=== PATIENT | female | born 1970 | race Caucasian/White ===

== ENCOUNTER 2016-08-06 05:15 | Day surgery (SDC) | payer OTHER ==
[~2016-08-06] VITALS: Ht 165.1 cm; Wt 147.0 kg
--- NOTE | ~2016-08-06 | S ---
[facility] [place] [address] SURGICAL PATH RPT PROCEDURE Name: NITZA BURNS [place] #: [place] [facility] [place].#: [id number] Admission: 08/06/16 Date of : 66 Discharge: 08/07/16 Report #: [id number] Path Case #: [id number] PATHOLOGY REPORT COLLECTION DATE: 08/06/2016 RECEIVED DATE: 08/07/2016 SUBMITTING PHYS: Dr. Royce Lagunas OTHER PHYS: Dr. Eileen oJhnson SPECIMEN(S) RECEIVED: A.Gastric sleeve * * * * * * * * * * * * FINAL DIAGNOSIS: Gastric mucosa, gastric sleeve, partial sleeve gastrectomy: - Mild chronic inflammation along with reactive nonspecific changes, history of morbid obesity. - Negative for intestinal metaplasia, atrophy or dysplasia. (IUV:csd; d/t: 08/08/2016) PATHOLOGIST: Yuliet Meza M.D. REPORT ELECTRONICALLY SIGNED BY: Yuliet Meza M.D. DATE/TIME: 08/08/2016 15:14 * * * * * * * * * * * * GROSS PATHOLOGY: The specimen is received in formalin, labeled "Nitza Burns and gastric sleeve." Received is a 23.5 x 5.8 x 3.5 cm C-shaped and tubular portion of stomach with a stapled margin of resection and a scant amount of attached adipose tissue. The serosa is pink-de la vega, diffusely hemorrhagic, wrinkled, and displays adhesions. The brock are removed and the specimen is opened to reveal dark red to pink-de la vega mucosa with the usual rugal folds. No mucosal masses or lesions are grossly identified. Filler Wiper sections are submitted in cassette A1. (TTL; 08/07/2016) CLINICAL HISTORY: Morbid obesity INITIAL CPT CODE(S): A; 46599 Professional services performed by [facility] at [address] [address] SURGICAL PATH RPT PROCEDURE Name: NITZA BURNS Room #: [facility].#: [id number] Admission: 08/06/16 Date of : 66 Discharge: 08/07/16 Report #: [id number] Path Case #: [id number] [address] [facility] , [place] [address] Technical services performed by [facility] at [address] [place] [address], [facility] [address] [address]. [place] [address] PHONE: [phone] DIRECTOR: Carroll Poe M.D. * * * END OF REPORT * * *
--- NOTE | ~2016-08-06 | O ---
[facility] [place] [address] OPERATIVE REPORT Name: NITZA BURNS Room #: 429-P [place] [facility] [place] [id number] Admission: 08/06/16 Attend Phys: Royce Lagunas MD, F Discharge: Date of : 66 Report #: [id number] THIS REPORT FOR: //name// CC: Brandie Lagunas DATE OF SERVICE: 08/06/2016 PREOPERATIVE DIAGNOSES: 1. Morbid obesity (body mass index 55). 2. Obstructive sleep apnea. 3. Bipolar mood disorder. 4. Arthritis. 5. Depression. 6. Anxiety. POSTOPERATIVE DIAGNOSES: 1. Morbid obesity (body mass index 55). 2. Obstructive sleep apnea. 3. Bipolar mood disorder. 4. Arthritis. 5. Depression. 6. Anxiety. PROCEDURE: Laparoscopic sleeve gastrectomy with EGD. SURGEON: Royce Lagunas MD CUTTER HELPER: Eileen Palmer MD and Gracie Knutson NP. ANESTHESIA: General endotracheal anesthesia and local anesthetic. ESTIMATED BLOOD LOSS: 5 mL. SPECIMEN: Lateral stomach. COMPLICATIONS: None appreciated. INDICATIONS FOR PROCEDURE: This is a 45-year-old female patient who stands 5 feet 5 inches, weighing 330 pounds with a BMI of 55. She has had difficulty with her weight for most of her adult life. She has tried diet, exercise, and medications. Any amount of weight she has lost, she has quickly regained plus additional weight after stopping the modality. She has associated complaints of back pain, left knee pain, and has comorbidities including obstructive sleep apnea and arthritis. She has been cleared from a multidisciplinary standpoint. She presents now for laparoscopic sleeve gastrectomy with EGD. [address] [address] OPERATIVE REPORT Name: NITZA BURNS Room #: 429-P [facility].#: [id number] Admission: 08/06/16 Attend Phys: Royce Lagunas MD, F Discharge: Date of : 66 Report #: [id number] OPERATIVE FINDINGS: On EGD, the patient's esophagus was normal down to the GE junction and Z-line measured at 38 cm from the teeth. The scope was advanced into the stomach and beyond the pylorus to the third portion of the duodenum. No polyps, masses, diverticula or ulcers were seen in the duodenum or stomach. On retroflexion of the scope, there was no evidence for a hiatal hernia. Laparoscopically, the patient's stomach was enlarged as expected. The liver showed steatosis without carli steatohepatitis. The small-bowel and colon in the surrounding area appeared otherwise normal. No other significant intra-abdominal pathology was identified. The gastric sleeve staple line was located at 1 cm lateral to the GE junction, 3 cm lateral to the incisura, and 4 cm proximal to the pylorus. There was no evidence for staple line leak. The leak test was performed as follows: Immediately after applying Tisseel to the staple line, the gastric sleeve was gently insufflated with the gastroscope and no air bubbles were seen. Endoluminally, there was no bleeding within the gastric sleeve. The excised stomach held 1 liter of fluid. At the conclusion of the operation, the sponge, needle, and instrument counts were correct. DESCRIPTION OF PROCEDURE IN DETAIL: After the benefits and risks of the procedure were explained to the patient which include but are not limited to risks of bleeding, infection, postoperative pain, postoperative expectations and risks of DVT and pulmonary embolus, informed consent was obtained. The patient was identified in the preoperative holding area. The patient was given IV antibiotics as documented in the chart in line with SCIP protocol. The patient was then taken to the operating room and was placed in the supine position. The patient was given IV sedation and was intubated without incident. SCDs were placed on the patient's bilateral lower extremities prior to induction of anesthesia. The patient had been placed in the modified low lying dorsal lithotomy position in stirrups on the beanbag. The beanbag and the patient were taped to the bed to secure the patient. A time-out was then performed to correctly identify the patient and procedure. An orogastric tube was placed by anesthesia. A bite block was placed and the fiberoptic EGD scope was passed into the patient's oropharynx, down the esophagus, into the stomach, and into the third portion of the duodenum. Findings are as noted above. The scope was slowly withdrawn into the antrum and the scope was retroflexed. The hiatus was visualized. The scope was then straightened and the end of the gastroscope was placed at the pylorus. The stomach was decompressed with the scope and orogastric tube. The patient's abdomen was then prepped and draped in the standard sterile fashion with surgical prep. Local anesthetic was infiltrated into the skin and subcutaneous tissue in the left supraumbilical area where a sharp #15 blade scalpel was used to make a 5 mm incision. The 5-mm Visiport was placed intraperitoneally with the 5 mm 0-degree angled laparoscope. Pneumoperitoneum [address] [address] OPERATIVE REPORT Name: NITZA BURNS Room #: 429-P REG [facility]#: [id number] Admission: 08/06/16 Attend Phys: Royce Lagunas MD, F Discharge: Date of : 66 Report #: [id number] was then achieved with insufflation of carbon dioxide to 15 mmHg. A 5 mm 30-degree angled laparoscope was then inserted. The 15-mm port was placed in the right supraumbilical area after local anesthetic was infiltrated into the skin and subcutaneous tissue and an appropriately sized incision was made. Two additional 5 mm ports were placed in the left abdomen after local anesthetic was infiltrated and incisions were made. All ports were placed under direct visualization. The patient was then placed in reverse Trendelenburg position. Local anesthetic was infiltrated into the skin and subcutaneous tissue in the subxiphoid area and a 5 mm incision was made through which a 5 mm obturator was passed into the abdominal cavity through the fascia to create a passageway for the Prosper liver retractor. The retractor was positioned to retract the liver cephalad and anteriorly. The retractor was held in place with the Iron Cadastral Engineer apparatus. All abdominal adhesions were then taken down with blunt dissection, sharp dissection and judicious use of the ultrasonic dissector. The gastrosplenic ligament and short gastric vessels were then divided using the ultrasonic dissector with appropriate traction. Bleeding points were made hemostatic with the ultrasonic dissector. Dissection was carried proximally up to the left julien of the diaphragm. The distal end point of dissection was then measured at 4 cm proximal to the pylorus. The short gastric vessels and gastrocolic ligaments were dissected to that level. The stomach was then rotated medially to visualize any posterior attachments/adhesions to the stomach. The adhesions were dissected with a combination of sharp dissection and use of the ultrasonic dissector. The endoscope was then slightly withdrawn to place it along the lesser curvature of the stomach. Suction was applied to the orogastric tube which was then removed, leaving the endoscope in place as a bougie. The gastric sleeve was then created. Two black loads of the powered endoscopic CHRISTOFER stapler buttressed with Terra-Strips were used to staple and divide the stomach 4 cm proximal to the pylorus. Additional green loads buttressed with Terra-strips were used to staple off the remainder of the stomach using the endoscope as the 34-Faroese bougie. Care was taken to ensure that greater than 3 cm of space was present between the incisura and the staple line. The stomach was fully transected and placed in the right upper quadrant of the abdomen for later removal. Tisseel was applied to the entire length of the staple line with the [employer]sp[employer]daimon aerosolizer to fully ensure hemostasis. A leak test was performed next. Immediately after applying Tisseel, the sleeve was gently insufflated with the endoscope, which was slowly withdrawn. No air bubbles were seen in the Tisseel laparoscopically. Endoluminally, no bleeding was seen. The stomach was fully decompressed and the scope was slowly withdrawn. The Prosper liver retractor was then loosened from the Iron Cadastral Engineer apparatus and it was removed without difficulty. [address] [address] OPERATIVE REPORT Name: NITZA BURNS Room #: 429-P [facility] [place].#: [id number] Admission: 08/06/16 Attend Phys: Royce Lagunas MD, F Discharge: Date of : 66 Report #: [id number] The stomach was then removed from the patient's body through the 15 mm port under direct visualization. A small amount stretching of the fascia was required to create an opening large enough for removal of the stomach. After its removal, the 15 mm port site fascial opening was closed with an 0 PDS suture using the Jerardo-Amalia laparoscopic fascial closure device. All ports were removed after the abdominal cavity was desufflated. The fascial suture was tied. Interrupted subcuticular 4-0 Monocryl sutures and Dermabond were used to close all skin incisions. The patient tolerated the procedure well. The patient was awakened, extubated and taken to the recovery room in stable condition with no apparent intraoperative complications. <ELECTRONICALLY SIGNED> By: Royce Lagunas MD, FACS 08/06/16 2150 [id number] Royce Lagunas MD, FACS /nt
[~2016-08-06 05:15] MED LIST: AMBIEN 10 MG TA10 MG PO; ASPIRIN81 M2 PO; BACTRIM DS TAB1 EACH PO; BRINTELLIX10 MG PO; BRINTELLIX20 MG PO; BUSPAR 5 MG TABL5 M1; BUSPAR PO; CELEBREX 200 M200 M1 PO; CLONAZEPAM 0.50.5 M1 PO; FLEXERIL PO; HYDROCODON-ACE1 EAC5 PO; ICY HOT BALM99.2 GM TP; LAMICTAL200 MG PO; MOBIC15 MG PO; MOBIC7.5 M1 PO; NICORETTE2 M1 BC; NORCO 10-325 T1 EACH PO; OXYCODONE HCL 55 MG PO; OXYCONTIN20 M1 PO; PERCOCET 10-321 EACH PO; PERCOCET 5-3251 EACH PO; PERCOCET 7.5-31 EACH PO; SAPHRIS10 MG SL; SEROQUEL 50 MG50 MG PO; TAMSULOSIN HCL0.4 M1 PO; TRIAMCINOLONE A80 G2 TOP; XANAX 0.5 MG0.5 MG PO; ZOFRAN ODT4 MG PO; ZOLOFT100 MG PO
[2016-08-07 07:09] LABS: HEMATOCRIT 40.7 % (37.0-47.0); HEMOGLOBIN 13.1 gm/dL (12.0-15.0); MCH 25.5 pg (26.0-34.0); MCHC 32.3 g/dL (28.0-37.0); PLATELET COUNT 269 thou/uL (150-400); RBC 5.16 mil/uL (4.20-5.00); WBC 8.7 thou/uL (4.0-11.0)
[2016-08-07 07:11] LABS: MANUAL DIFF YES
[2016-08-07 07:20] LABS: CALCIUM 8.5 mg/dL (8.5-10.1); POTASSIUM 4.6 mmol/L (3.5-5.1)
[2016-08-07 08:07] LABS: ABSOLUTE NEUTROPHILS 7.5 thou/uL (1.4-8.2); TOTAL CELL COUNT 100
== END 2016-08-07 14:36 | disposition home or self-care (01) ==
LOC: OR → 4E 05:15 → OR 05:15 → TBA 05:16 → OR 09:23 → 4E 18:17 → GI 08-07 10:57 → EDSTATUS 08-07 14:08 → OR 08-07 14:36
PROVIDERS: Surgery
DX: E66.01 Morbid (severe) obesity due to excess calories (principal); G47.33 Obstructive sleep apnea (adult) (pediatric); F31.9 Bipolar disorder, unspecified; M19.90 Unspecified osteoarthritis, unspecified site; F41.9 Anxiety disorder, unspecified; Z68.43 Body mass index [BMI] 50.0-59.9, adult; Z87.891 Personal history of nicotine dependence; Z98.890 Other specified postprocedural states
CPT/HCPCS: 50010; 50101; 50222; 50249; 50386; 50555; 50739; 50740; 50962; 51437; 52182; 52265; 53307; 53311; 54022; 54118; 56462; 56525; 56526; 57092; 62110; 62900; 64031; 70005

== ENCOUNTER → 2020-03-02 | Outpatient (CLI) | payer OTHER ==
[~2020-03-02] VITALS: Ht 165.1 cm; Wt 72.6 kg
[~2020-03-02] MED LIST changes: +BRINTELLIX5 MG PO; +CELEBREX 200 M200 MG PO; +DOVONEX120 GM TP; +HAIR SKIN NAIL1 EACH PO; +LIDOCAINE 22 %/30 GM MM; +MS CONTIN15 MG PO; +OXYCONTIN15 MG PO; +PRENATAL PO; +PRILOSEC 20 MG20 MG PO; +RISPERDAL 1 MG T1 MG PO; +ROXICODONE5 M2 PO; +SERTRALINE HCL50 MG PO; +VITAMIN B-1100 M1 PO; +WOMEN'S DAILY1 EAC2 PO; +ZANAFLEX4 MG PO; +ZOLOFT PO; +[UNRECOGNIZED DRUG - OTHER]; +[UNRECOGNIZED DRUG - OTHER] PO
[2020-03-02 14:44] VITALS: BP 103/47
--- NOTE | 2020-03-02 15:02 | NUR ---
Pain Clinic Assessment: 1. History of Osteoarthritis: NONE History of Rheumatoid Arthritis: Not Applicable 2. Height: 5 ft. 5 in. 165.1 cm. Weight: 160.0 lb. oz. 72.576 kg. Patient's BMI: 26.6 3. Vital Signs: BP: 103/47 Pulse: 54 Resp: 16 Temp: 02 Sat: 100 ECG Mon: 4. Pain Intensity: 5; 10 ATWORST 5. Fall Risk: Dizziness: N Needs help standing or walking: N Fallen in the last 3 months: N Fall risk comments: 6. Patient on Blood Thinner: None 7. History of Hypertension: N 8. Opioid Therapy greater than 6 weeks: Y Opiate Contract Signed: 9. Risk Assessment Tool Provided: 3-LOW RISK 10. Functional Assessment Tool: 11. Recreational Drug Use: Never Drug Type: Tobacco Use: Never Smoker Tobacco Type: Amount or Packs/day: How Many Years: Alcohol Use: No Frequency: Quant:
--- NOTE | 2020-03-09 11:11 | HPC ---
[facility] [place] [place] [address] PAIN MANAGEMENT CONSULTATION Name: NITZA BURNS Room #: REG [facility]#: [id number] Admission: 03/02/20 Attend Phys: Hu Rothman DO Discharge: Date of : 66 Report #: [id number] CC: Hu Driver MD DATE OF SERVICE: 03/02/2020 CHIEF COMPLAINT: Low back pain, right lower extremity pain and paresthesias. HISTORY OF PRESENT ILLNESS: As you know, the patient is a 49-year-old female who suffers from longstanding lumbar radiculopathy that began about 6 years ago. She has been treated with epidural injections and medication management at a Pain Clinic at [facility] with Dr. Juan Carlos Driver. She had been doing fairly well with these injections and medication management, but began to lose efficacy. She was referred to our clinic to discuss the possibility of a spinal cord stimulator as an option of treatment. The patient is indicating no injury or trauma that led to symptom development. The patient indicates there pain is continuous. She describes the pain as sharp with intermittent numbness and tingling. Places current pain score 5/10, daily average at 5/10, worst pain has been 10/10. The patient states that lifting, standing and twisting as well as bending exacerbate symptoms; lying flat tends to improve pain as has epidural injections and medication management. She has been referred to our service to discuss the possibility of spinal cord stimulator technology providing benefit for her symptoms. PAST MEDICAL HISTORY: Positive for anemia and emotional problems. PAST SURGICAL HISTORY: Gastric sleeve. SOCIAL HISTORY: The patient denies tobacco, alcohol, IV or illicit drug use. 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 She is working, not receiving workmen's compensation nor is she trying to obtain disability benefits. She is unaccompanied at today's visit. REVIEW OF SYSTEMS: Positive for fatigue and weakness, frequent and recurrent headaches, wearing corrective eyewear, blurred and double vision, incontinence or dribbling to urine, kidney stones, numbness and tingling sensations involving the right lower extremity, nervousness, depression, insomnia and anemia. All other review of systems negative per 12-point review of systems other than those listed in history of present illness. Pain impact score 27/70 indicating moderate interference of daily activities secondary to pain. IMAGING: No new imaging available. ALLERGIES: DIPHENHYDRAMINE, CEFTRIAXONE. CURRENT MEDICATIONS: Tizanidine 4 mg q. 8 hours p.r.n. muscle spasms, oxycodone 5 mg dose t.i.d. p.r.n. pain, morphine sulfate ER 15 mg b.i.d., celecoxib 200 mg once a day, Risperdal 1 mg 2 tabs p.o. at bedtime, sertraline 50 mg per day, clonazepam 0.5 mg b.i.d., Lamictal 200 mg twice a day. PHYSICAL EXAMINATION: VITAL SIGNS: Blood pressure 103/47, pulse is 54, respiratory rate 16 and unlabored. The patient is 100% on room air. Height 5 feet 5 inches tall, weight 160 pounds, BMI calculated 26.6. GENERAL: Well-developed, well-nourished, well-hydrated 49-year-old female, appearing her stated age. She is in no acute distress, awake, alert and oriented x 3. Current pain score is 5/10. HEENT: Normocephalic, atraumatic. Pupils equal, round and reactive. NEUROLOGIC: Speech is fluent for patient. LUNGS: Appear clear. No wheeze, rhonchi or rales. CARDIOVASCULAR: Regular. No appreciable gallop, no rub. ABDOMEN: Soft, nontender, nondistended. EXTREMITIES: Show no clubbing, no cyanosis, no edema. MUSCULOSKELETAL: Lower extremity strength appears symmetrical 5/5, intact to light touch from L1 through S2 dermatomes. Seated straight leg raising negative. Supine straight leg raising mildly positive right. Gina's test is negative. Modified Gaenslen's positive for axial low back pain. Ankle clonus negative. Babinski is negative. Gait appears mildly antalgic favoring right lower extremity. ASSESSMENT: 1. Symptomatic lumbar radiculopathy. 2. Displacement of lumbar intervertebral disk with radiculopathy. 3. Lumbosacral spondylosis with radiculopathy. 4. Chronic intractable pain. PLAN: 1. The patient has been referred to our service by her pain physician at [facility] to discuss the possibility of looking towards a neurostimulator as a way to treat her ongoing pain. The patient has undergone radiofrequency lesioning of the medial branch nerves of the lumbar spine in the past, she has also undergone multiple epidural injections and medication management, all of which provided improvement, but unfortunately are starting lose efficacy. She was referred to our clinic to discuss the possibility of having a spinal cord stimulator implanted to assist in pain control. We discussed with the patient at length today about the process of authorization and about the process of the spinal cord stimulator trial. The patient is agreeable to continue the workup for the possibility of undergoing the procedure. 2. The patient came to us today with evaluation from her psychiatrist indicating there is no concern in regards to her bipolar disorder and generalized anxiety disorder in regards to spinal cord stimulator. I advised the patient that this is not the typical testing that we do for spinal cord stimulator and that there may be a possibility she would have to follow up with Psychiatry, who specifically tests for this device and the pitfalls that occur with the device itself including the permanent implant itself. We will begin the process of moving forward, but if it is requested, the patient will have to follow up with a psychiatrist that does specific testing for spinal cord stimulator. We are attempting to rule out any potential psychopathology that may preclude the patient from undergoing the procedure and having this placed permanently. The patient is agreeable if need to follow up with Psychiatry. 3. Once we have received the patient's psychiatric evaluation, assuming she has to undergo further evaluation, we would then begin the process of moving forward with prior authorization. We do have a psychiatric evaluation and it indicates that her psychiatrist does not feel that she would have any problems and will move forward with this with the understanding that if we need further psychiatric evaluation that will have to be done prior to authorization being completed. We will begin the process and adjust as necessary. 4. No medication changes made at today's visit. The patient will continue her current medications as prescribed by her pain physician at [facility]. 5. We will see the patient back in followup visit once we have achieved authorization for the patient to undergo spinal cord stimulator trial implantation. We are hopeful this authorization will occur quite quickly and we can have the patient trial the device and determine if this would be a treatment course that would be of benefit. 6. We wish to thank Dr. Driver for the referral of the patient to our clinic to discuss the option of spinal cord stimulator technology. We will keep you apprised of her response to treatment as we move forward with the device itself. We are hopeful it will be successful in alleviating her symptoms. Again, we wish to thank you for the opportunity to see this patient in consultation. <ELECTRONICALLY SIGNED> By: Hu Rothman DO 03/09/20 1111 [id number] [id number] Hu Rothman DO /nt
== END ==
LOC: PAIN 02-23 10:19
PROVIDERS: ATTEND Anesthesiology Pain Medicine
DX: M51.16 Intervertebral disc disorders with radiculopathy, lumbar region (principal); M47.27 Other spondylosis with radiculopathy, lumbosacral region; M79.604 Pain in right leg; R20.2 Paresthesia of skin; G89.29 Other chronic pain; Z79.899 Other long term (current) drug therapy

== ENCOUNTER → 2020-04-05 | Outpatient (CLI) | payer OTHER ==
[~2020-04-05] VITALS: Ht 165.1 cm; Wt 72.2 kg
[~2020-04-05] MED LIST changes: +CALTRATE PLUS1 EACH PO; +NIACIN 500 MG500 M1 PO
[2020-04-05 12:55] VITALS: BP 97/49
--- NOTE | 2020-04-05 12:59 | NUR ---
Pain Clinic Assessment: 1. History of Osteoarthritis: NONE History of Rheumatoid Arthritis: Not Applicable 2. Height: 5 ft. 5 in. 165.1 cm. Weight: 159.2 lb. oz. 72.213 kg. Patient's BMI: 26.5 3. Vital Signs: BP: 97/49 Pulse: 63 Resp: 16 Temp: 02 Sat: 96 ECG Mon: 4. Pain Intensity: 4 5. Fall Risk: Dizziness: N Needs help standing or walking: N Fallen in the last 3 months: N Fall risk comments: 6. Patient on Blood Thinner: None 7. History of Hypertension: N 8. Opioid Therapy greater than 6 weeks: Y Opiate Contract Signed: 9. Risk Assessment Tool Provided: 3-LOW RISK 10. Functional Assessment Tool: 11. Recreational Drug Use: Never Drug Type: Tobacco Use: Never Smoker Tobacco Type: Amount or Packs/day: How Many Years: Alcohol Use: No Frequency: Quant:
--- NOTE | 2020-04-06 12:43 | HPC ---
[address] [address] PAIN MANAGEMENT CONSULTATION Name: NITZA BURNS Room #: REG FATUMA Sakshi#: [id number] Admission: 04/05/20 Attend Phys: Hu Rothman DO Discharge: Date of : 66 Report #: [id number] THIS REPORT FOR: cc: Carleen Plascencia Linda J. DO Johnson, James E. DO ~ DATE OF SERVICE: 04/05/2020 REFERRING PHYSICIAN: Dr. David Driver. CHIEF COMPLAINT: Low back pain, right lower extremity pain with paresthesias. HISTORY OF PRESENT ILLNESS: As you know, the patient is a 49-year-old female with longstanding history of lumbar radiculopathy began about 6 years ago. She has been treated with epidural injections and medication management, but has lost benefit from an analgesic standpoint. She was referred to our clinic to discuss spinal cord stimulator trial implantation. The patient was seen on 03/02/2020 and sent for evaluation from a psychiatric standpoint to confirm that she is a potential candidate from their perspective. She was established today's appointment having successfully completed her psychiatric evaluation with no psychopathology noted to preclude us from moving forward with the procedure. She was placed on today's schedule to undergo 2-lead spinal cord stimulator trial implantation in hopes of improving lumbar radicular symptoms. The patient denies new injury, trauma or any changes in medical history since our last visit. ALLERGIES: DIPHENHYDRAMINE, CEFTRIAXONE. CURRENT MEDICATIONS: See chart. SOCIAL HISTORY: The patient denies tobacco, alcohol, IV or illicit drug use. 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 IMAGING: No new imaging available. PHYSICAL EXAMINATION: VITAL SIGNS: Blood pressure 97/49, pulse 63, respiratory rate 16 and unlabored. The patient is 96% on room air. Height 5 feet 5 inches tall, weight 159.2 pounds, BMI calculated 26.5. GENERAL: Well-developed, well-nourished, well-hydrated 49-year-old female, appearing stated age, pain is rated around 4/10. HEENT: Normocephalic, atraumatic. Pupils equal, round and reactive. EXTREMITIES: Show no clubbing, no cyanosis, no edema. MUSCULOSKELETAL: Lower extremity strength appears symmetrical 5/5, intact to [facility] [address] [place] [address] PAIN MANAGEMENT CONSULTATION Name: NITZA BURNS Room #: REG [facility]#: [id number] Admission: 04/05/20 Attend Phys: Hu Rothman DO Discharge: Date of : 66 Report #: [id number] light touch from L1 through S2 dermatomes. Seated straight leg raising negative. Supine straight leg raising mildly positive on the right. Gina's test is negative. ASSESSMENT: 1. Symptomatic lumbar radiculopathy. 2. Displacement of lumbar intervertebral disk with radiculopathy. 3. Lumbosacral spondylosis with radiculopathy. 4. Chronic intractable pain. PLAN: 1. The patient returns today in followup visit to undergo spinal cord stimulator trial implantation under fluoroscopic guidance. The patient has successfully completed her psychiatric evaluation, which showed no psychopathology that would preclude us from providing the trial implantation today. She was established today's appointment to undergo the trial in hopes of improving pain. She returns today to undergo that procedure. The patient has been advised risks and benefits of a trial implantation of a spinal cord stimulator and its two leads. These risks include, but are not necessarily limited to; bleeding, bruising, infection, worsening of pain, no relief of pain, temporary or permanent muscle weakness, temporary or permanent nerve damage, possible paralysis and . The patient states understood and wished to proceed. 2. No medication changes made at today's visit. The patient will continue current medical therapy as prior prescribed. 3. We will see the patient back in followup visit in 1 week. At that time, we will discuss the efficacy of the spinal cord stimulator trial and determine if moving forward with permanent implant would be recommended. PROCEDURE NOTE DESCRIPTION OF PROCEDURE: Two-lead spinal cord stimulator implantation for trial. After obtaining written consent, a 22-gauge IV Hep-Lock was placed in the patient's upper extremity. The patient was given IV prophylactic antibiotic infused slowly over 30 minutes prior to procedure. The patient was then taken to the fluoroscopy suite, placed in prone position with 2 pillows under the abdomen to decrease lumbar lordosis. Cardiopulmonary monitoring was established and the patient's vital signs were monitored throughout the procedure. The patient's thoracolumbar spine was prepped and draped with chlorhexidine and draped in a sterile fashion. No IV sedation was provided. AP fluoroscopic imaging was obtained to identify a marked midline position of the T10 through L2 spinous processes. Skin was anesthetized with 1% preservative-free lidocaine. There was a total of 7 mL on the right and 6 mL on [address] [address] PAIN MANAGEMENT CONSULTATION Name: NITZA BURNS Room #: REG FATUMA Worthy#: [id number] Admission: 04/05/20 Attend Phys: Hu Rothman DO Discharge: Date of : 66 Report #: [id number] the left of the lidocaine provided for analgesia. This was done prior to the introduction of the two 14-gauge 4-inch Tuohy needles. Skin entry site on the right was approximately at L1 vertebral body level. The needle was advanced using a paramedian approach to the right of midline, approximately 45 degree angle. Loss of resistance to air was utilized to verify placement within the epidural space. Epidural space was entered at the T12-L1 interspace. Lateral fluoroscopic view was obtained to confirm the position of the tip of the Tuohy needle within the epidural space. Aspiration noted to be negative for both heme and cerebrospinal fluid. The patient did not complain of pain or paresthesias during needle placement. The spinal cord stimulating lead was advanced through the Tuohy needle under direct visualization. It was advanced to the T7 level just to the right of midline. The tip of the stimulating lead was noted to be in appropriate position at that level. AP and lateral imaging was obtained to confirm the positioning. Our attention was then directed to the left side. The skin entry site of the 4-inch Tuohy needle was at the level of the L1 vertebral body. Needle was advanced using a left paramedian approach to just to the left of midline at approximately 45 degree angle. Loss of resistance to air was utilized to verify placement within the epidural space. Epidural space was entered at the T12-L1 interspace. Lateral fluoroscopic view was once again obtained to confirm the position of the tip of the Tuohy needle was in the epidural space. Aspiration noted to be negative for heme or cerebrospinal fluid. The patient did not complain of pain or paresthesias with needle placement. The spinal cord stimulating lead was then advanced through this Tuohy needle under direct visualization just to the left of midline. Tip of the stimulating lead was aligned with the T8 vertebral body. Stimulation testing was performed with the assistance of the spinal cord stimulator device bilingual call center representative. The patient did report good pattern of paresthesias covering acceptable voltage over the areas of pain. Final position of the zero electrode was noted to be unmoved from its previous position. The stylets were then removed from the leads as well as the Tuohy needles. We were careful to confirm position of the leads. During the explantation of the stylets and needles there was no movement of the leads during that process. The stimulating leads were then anchored to the patient's back with Steri-Strips and OpSite bandaging. The patient tolerated the procedure well, carefully escorted to recovery room in stable condition. No apparent complications. The patient was advised if she begins to experience any increase in her typical pain, contact the [employer] device bilingual call center representative. If she is experiencing increasing back pain, headache, fever, chills, night sweats concerned of any infection, drainage from the site [address] [address] PAIN MANAGEMENT CONSULTATION Name: NITZA BURNS Maru Room #: REG FATUMA Cantor#: [id number] Admission: 04/05/20 Attend Phys: Hu Rothman DO Discharge: Date of : 66 Report #: [id number] contact the on-call pain physician. She was given numbers for both. We will see the patient back in followup visit in 1 week. <ELECTRONICALLY SIGNED> By: Hu Rothman DO 04/06/20 1243 [id number] [id number] Hu Rothman DO /nt
== END | disposition home or self-care (01) ==
LOC: PAIN 06:57
PROVIDERS: ATTEND Anesthesiology Pain Medicine
DX: M51.16 Intervertebral disc disorders with radiculopathy, lumbar region (principal); M47.27 Other spondylosis with radiculopathy, lumbosacral region; G89.29 Other chronic pain; M19.90 Unspecified osteoarthritis, unspecified site; Z98.890 Other specified postprocedural states; Z79.899 Other long term (current) drug therapy; Z88.8 Allergy status to other drugs, medicaments and biological substances

== ENCOUNTER → 2020-04-12 | Outpatient (CLI) | payer OTHER ==
[~2020-04-12] VITALS: Ht 165.1 cm; Wt 72.7 kg
[2020-04-12 08:26] VITALS: BP 109/55
--- NOTE | 2020-04-12 08:32 | NUR ---
Pain Clinic Assessment: 1. History of Osteoarthritis: NONE History of Rheumatoid Arthritis: Not Applicable 2. Height: 5 ft. 5 in. 165.1 cm. Weight: 160.2 lb. oz. 72.666 kg. Patient's BMI: 26.7 3. Vital Signs: BP: 109/55 Pulse: 78 Resp: 14 Temp: 02 Sat: 98 ECG Mon: 4. Pain Intensity: 2 5. Fall Risk: Dizziness: N Needs help standing or walking: N Fallen in the last 3 months: N Fall risk comments: 6. Patient on Blood Thinner: None 7. History of Hypertension: N 8. Opioid Therapy greater than 6 weeks: Y Opiate Contract Signed: 9. Risk Assessment Tool Provided: 3-LOW RISK 10. Functional Assessment Tool: 11. Recreational Drug Use: Never Drug Type: Tobacco Use: Never Smoker Tobacco Type: Amount or Packs/day: How Many Years: Alcohol Use: No Frequency: Quant:
--- NOTE | 2020-04-12 15:28 | HPC ---
[facility] [address] [place] [address] PAIN MANAGEMENT CONSULTATION Name: NITZA BURNS Room #: REG [facility]#: [id number] Admission: 04/12/20 Attend Phys: Hu Rothman DO Discharge: Date of : 66 Report #: [id number] THIS REPORT FOR: cc: Carleen Plascencia Linda J. DO Johnson, James E. DO ~ DATE OF SERVICE: 04/12/2020 REFERRING PHYSICIAN: Carleen Plascencia DO CHIEF COMPLAINT: Low back pain, right lower extremity pain with paresthesias. HISTORY OF PRESENT ILLNESS: As you know, the patient is a very pleasant 49-year-old female who has just completed a week long trial implantation of the [employer] spinal cord stimulator device. She reports an 80% improvement in overall pain. The patient states she was able to return to all activities of daily living without significant pain interference. She is very pleased with response to the device, wishing to move forward with permanent implant. She returns today reporting pain no greater than 2/10, which is a significant reduction in her symptoms from previous evaluations. She indicates that she was able to even reduce her reliance on her opioid medication over this last week. She is very pleased with response to device, wishing to move forward with permanent implant. ALLERGIES: DIPHENHYDRAMINE, CEFTRIAXONE. CURRENT MEDICATIONS: See chart. SOCIAL HISTORY: The patient denies tobacco, alcohol, IV or illicit drug use. 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 IMAGING: No new imaging available. PHYSICAL EXAMINATION: VITAL SIGNS: Blood pressure 109/55, pulse 78, respiratory rate 14 and unlabored. The patient is 98% on room air. Height 5 feet 5 inches tall, weight 160.2 pounds, BMI calculated 26.7. GENERAL: Well-developed, well-nourished, well-hydrated 49-year-old female, appearing stated age, pain is rated today 2/10. HEENT: Normocephalic and atraumatic. Pupils are equal and round. Speech is fluent. EXTREMITIES: Show no clubbing, no cyanosis. No appreciable edema. MUSCULOSKELETAL: Lower extremity strength appears symmetrical 5/5, intact to light touch from L1 through S2 dermatomes. Seated straight leg raising negative. Supine straight leg raising remains positive on the right. [address] [address] PAIN MANAGEMENT CONSULTATION Name: NITZA BURNS Room #: REG [facility]#: [id number] Admission: 04/12/20 Attend Phys: Hu Rothman DO Discharge: Date of : 66 Report #: [id number] test is negative. Gait mildly antalgic favoring right lower extremity. ASSESSMENT: 1. Symptomatic lumbar radiculopathy. 2. Displacement of lumbar intervertebral disk with radiculopathy. 3. Lumbosacral spondylosis with radiculopathy. 4. Chronic intractable pain. PLAN: 1. The patient returns today in followup visit for explantation of spinal cord stimulating device. She had a successful trial with 80% improvement in overall pain. She is very excited to move forward with permanent implant. We will begin the process of referring the patient out for implantation of the device. I am pleased to see the patient has done well with the trial implantation. She will follow up with Dr. Mckeon's office as quickly as possible to begin scheduling appointments for evaluation and for scheduling of the permanent implantation. 2. No medication changes made at today's visit. The patient will continue current medical therapy as prior prescribed. 3. The patient is to follow up with Dr. Driver in regard to opioid medication management. Hopefully, we will be able to wean the patient off these medications quickly when she has the implant completed and symptoms began to resolve. 4. We wish to thank the referring physician for the opportunity to see this patient in consultation. We are pleased to see she has done very well with the trial implantation. She will be following up with the neurosurgeon for implantation. PROCEDURE NOTE DESCRIPTION OF PROCEDURE: Explantation of 2 spinal cord stimulating leads, status post trial. The patient was placed in a seated position. We removed all Steri-Strips and OpSite bandaging. There were 2 spinal cord stimulating leads in place. There was no erythema, drainage around the site of insertion. The leads were removed without complication. There was no pain or paresthesias. Both leads had their 8 electrodes and the tips intact. A sterile bandage was placed over the patient's insertion sites. The patient had a normal function upon discharge home. <ELECTRONICALLY SIGNED> By: Hu Rothman DO 04/12/20 1528 [id number] Hu Rothman DO /nt
== END ==
LOC: PAIN 06:49
PROVIDERS: ATTEND Anesthesiology Pain Medicine
DX: M47.27 Other spondylosis with radiculopathy, lumbosacral region (principal); M51.16 Intervertebral disc disorders with radiculopathy, lumbar region; M54.5 Low back pain; M79.661 Pain in right lower leg; R20.2 Paresthesia of skin